=== PATIENT | female | born 2000 | race African-American/Black ===

== ENCOUNTER 2020-01-13 20:45 | Emergency (ER) | payer OTHER ==
[~2020-01-13] VITALS: Ht 157.5 cm; Wt 59.0 kg
[2020-01-13 20:47] VITALS: BP 116/88
[2020-01-13] MEDS ORDERED: ZITHROMAX250 MG ORAL (21:13)
--- NOTE | 2020-01-13 21:13 | Emergency Room Report ---
History of Present Illness General Chief Complaint: Flu Like Symptoms Source: Patient Present Illness HPI Is a 19-year-old female with no past medical history. She presents with fever and sore throat. Onset was 4 AM last night. She has generalized body pain. She went to [facility] in the morning. She was evaluated and told that she has a throat infection. However she was discharged home with just Motrin. She has been taking Motrin and she said that fever is getting worse. Throat pain is getting worse. No drooling. Now feeling nauseous and one episode of vomiting. Increasing body pain. Pain is 8 out of 10. No cough or congestion. No other sick contact. No recent travel or exposure to known patient with COVID-19. COVID-19 risk:Contact w/high r: No COVID-19 risk:Travel to affect: No Has patient experienced rodrigues: No Coronavirus symptoms experienc: Flu-Like Symptoms Allergies: Coded Allergies: No Known Allergies (Unverified , 01/13/20) Patient History Past Medical History: see triage record, old chart reviewed Past Surgical History: none Pertinent Family History: none Social History: Denies: smoking Last Menstrual Period: na Now: No Immunizations: other Reviewed Nursing Documentation: PMH: Agreed; PSxH: Agreed Nursing Documentation-PMH Past Medical History: No Stated History Review of Systems Constitutional: Reports: fever, malaise Eye: Denies: eye pain, blurred vision ENT: Reports: throat pain; Denies: ear pain, nose congestion, throat swelling Respiratory: Denies: cough, shortness of breath Cardiovascular: Denies: chest pain, palpitations Gastrointestinal: Denies: abdominal pain, diarrhea, nausea, vomiting Musculoskeletal: Denies: back pain, joint pain Skin: Denies: rash Neurological: Denies: headache, numbness Endocrine: Denies: increased thirst, increased urine Hematologic/Lymphatic: Denies: easy bruising All Other Systems: negative except mentioned in HPI Physical Exam Vital Signs Date Time Temp Pulse Resp B/P (MAP) Pulse Ox O2 Delivery O2 Flow Rate FiO2 01/13/20 20:42 99.3 120 20 116/88 (97) 98 Room Air Vitals with fever and tachycardia Sp02 EP Interpretation: reviewed, normal General Appearance: well appearing, no apparent distress, alert Head: normocephalic, atraumatic Eyes: bilateral eye PERRL, bilateral eye EOMI ENT: hearing grossly normal, uvula midline, tonsillar swelling, pharyngeal erythema, tonsillar exudate Neck: full range of motion, supple, no meningismus Respiratory: chest non-tender, lungs clear, normal breath sounds Cardiovascular #1: regular rate, rhythm, no murmur Gastrointestinal: normal bowel sounds, non tender, no mass, no organomegaly, no bruit, non-distended Musculoskeletal: back normal, normal range of motion, gait/station normal Psychiatric: mood/affect normal Medical Decision Making Diagnostic Impression: Primary Impression: Acute tonsillitis Qualified Codes: J03.90 - Acute tonsillitis, unspecified ER Course Patient presents with acute tonsillitis. No evidence of peritonsillar abscess, retropharyngeal abscess or Tello angina. She has no respiratory issue. Unlikely to be coronavirus related. She is otherwise low risk and has no risk factor for testing. Patient improved after IV fluid and medication. Will discharge home. Last Vital Signs Date Time Temp Pulse Resp B/P (MAP) Pulse Ox O2 Delivery O2 Flow Rate FiO2 01/13/20 20:47 120 20 Room Air 01/13/20 20:47 99.3 116/88 98 Status: improved Disposition: HOME, SELF-CARE Condition: Stable Scripts Azithromycin* (ZITHROMAX*) 250 Mg Tablet 250 MG ORAL DAILY, #6 TAB 0 Refills Take two tables once daily for 1 day, then one tablet once daily for 4 days. Prov: Godwin Cantrell MD 01/13/20 Additional Instructions: Rest. Increase fluids. Continue with ibuprofen. Follow-up with your doctor in 3 to 5 days for recheck if not better. Return if worse. Godwin Cantrell MD Jan 13, 2020 21:13
[2020-01-13] MEDS ORDERED: cefTRIAXone 1 GM in NS 55 ML IVPB ONE (21:15)
[2020-01-13] MEDS ORDERED: Ketorolac 30mg Inj IV ONE (21:15)
[2020-01-13] MEDS ORDERED: Dexamethasone 4mg/ml vial IVP ONE (21:15)
[2020-01-13 22:30] VITALS: BP 117/75
== END 2020-01-13 22:30 | disposition home or self-care (01) ==
LOC: EDBD 20:45 → EMR 21:13
DX: J03.90 Acute tonsillitis, unspecified (principal)
CPT/HCPCS: 96361; 96365; 96375; J0696; J1100; J1885; J2405; J7030; Z7502; 99284